=== PATIENT | female | born 1985 | race African-American/Black ===

== ENCOUNTER 2016-09-09 10:46 | Emergency (ER) | payer MEDICAID ==
[~2016-09-09] VITALS: Ht 162.6 cm; Wt 110.0 kg
[2016-09-09] MEDS ORDERED: SODIUM CHLORIDE 0.9% 1,000 ML IV ONE (11:15)
[2016-09-09] MEDS ORDERED: ONDANSETRON HCL 4MG/2ML VIAL IV ONE (11:15)
[2016-09-09] MEDS ORDERED: FAMOTIDINE 20MG/2ML VIAL IV ONE (11:15)
[2016-09-09 11:46] LABS: BASOPHILS % 0.8 % (0.0-2.0); EOSINOPHILS % 4.3 % (0.0-5.0); HEMATOCRIT. 41.3 % (36.0-48.0); HEMOGLOBIN. 13.5 g/dL (12.0-16.0); LYMPHOCYTES % 24.8 % (20.0-50.0); MEAN CORPUSCULAR HEMOGLOBIN 29.2 pg (28.0-32.0); MEAN CORPUSCULAR HGB CONC 32.7 g/dL (31.0-37.0); MEAN CORPUSCULAR VOLUME 89.1 fL (81.0-99.0); MEAN PLATELET VOLUME 8.7 fl (7.4-10.4); MONOCYTES % 7.5 % (2.0-8.0); NEUTROPHILS % 62.6 % (40.0-76.0); PLATELET 288 x1000/uL (130-400); RED BLOOD CELL COUNT 4.64 mill/uL (4.2-5.4); RED CELL DISTRIBUTION WIDTH 14.8 % (11.6-14.6); WHITE BLOOD COUNT 6.5 x1000/uL (4.5-11.0)
[2016-09-09 11:52] LABS: CHLORIDE 104 mEq/L (98-107); INDEX HEMOLYSI 1 (1-3); INDEX ICTERIC 1 (1-4); INDEX LIPEMIC 1 (1-3)
[2016-09-09 12:06] LABS: ALANINE AMINOTRANSFERASE 22 IU/L (13-61); ALBUMIN 4.5 g/dL (3.4-5.0); ANION GAP 13; B-HCG QUANTITATIVE < 1 mIU/mL (<3); CALCIUM 9.8 mg/dL (8.5-10.1); CARBON DIOXIDE 25 mEq/L (21-32); LIPASE 78 IU/L (73-393); UREA NITROGEN BLOOD 7 mg/dL (7-21); eGFR > 60 mL/min (>60)
[2016-09-09 13:00] VITALS: BP 125/80
[2016-09-09 13:27] LABS: CLARITY URINE CLOUDY (CLEAR); COLOR URINE DARK YELLOW (YELLOW); GLUCOSE URINE NEGATIVE (NEGATIVE); KETONES URINE 1+ (NEGATIVE); LEUKOCYTE ESTERASE URINE NEGATIVE (NEGATIVE); NITRITE URINE NEGATIVE (NEGATIVE); OCCULT BLOOD URINE NEGATIVE (NEGATIVE); PH URINE 5.5 (4.5-8.0); PROTEIN URINE 1+ (NEGATIVE); SPECIFIC GRAVITY URINE 1.026 (1.005-1.030)
[2016-09-09 13:41] LABS: BACTERIA URINE 2+; RBC URINE 0-2 /hpf (0-2); SQUAMOUS EPITHELIAL CELL URINE 3+ /lpf (RARE/1+); WBC URINE 0-2 /hpf (0-2)
== END 2016-09-09 16:19 | disposition home or self-care (01) ==
LOC: ER 10:55
DX: B34.9 Viral infection, unspecified (principal); R10.84 Generalized abdominal pain; G40.909 Epilepsy, unspecified, not intractable, without status epilepticus; I25.10 Atherosclerotic heart disease of native coronary artery without angina pectoris; R62.59 Other lack of expected normal physiological development in childhood; Z98.61 Coronary angioplasty status
CPT/HCPCS: 36415; 76830; 76856; 80053; 81001; 83690; 84702; 85025; 86850; 86870; 86900; 86901; 96361; 96374; 96375; 99285; J2405; J3490; J7030; Z7610

== ENCOUNTER 2016-09-10 02:54 | Emergency (ER) | payer MEDICAID ==
[~2016-09-10] VITALS: Ht 177.8 cm; Wt 100.0 kg
[2016-09-10 03:48] VITALS: BP 115/79
[2016-09-10] MEDS ORDERED: ACETAMINOPHEN 325MG TABLET ONE (05:31)
[2016-09-10] MEDS ORDERED: TETANUS, DIPHTHERIA, PERTUSSIS VAC/PF 0.5ML (>7YR OLD) IM ONE (06:00)
== END 2016-09-10 07:45 | disposition home or self-care (01) ==
LOC: ER 03:02
DX: R21 Rash and other nonspecific skin eruption (principal); F79 Unspecified intellectual disabilities; F41.9 Anxiety disorder, unspecified; F20.9 Schizophrenia, unspecified; G40.909 Epilepsy, unspecified, not intractable, without status epilepticus
CPT/HCPCS: 99283

== ENCOUNTER 2016-09-25 00:50 | Emergency (ER) | payer MEDICAID ==
[~2016-09-25] VITALS: Ht 167.6 cm; Wt 92.7 kg
[2016-09-25] MEDS ORDERED: IBUPROFEN 600MG TABLET PO ONE (03:45)
[2016-09-25] MEDS ORDERED: ACETAMINOPHEN 325MG TABLET PO ONE (03:45)
[2016-09-25 04:18] LABS: BASOPHILS % 0.8 % (0.0-2.0); EOSINOPHILS % 2.5 % (0.0-5.0); HCG SCREEN NEGATIVE; HEMATOCRIT. 33.6 % (36.0-48.0); HEMOGLOBIN. 11.2 g/dL (12.0-16.0); LYMPHOCYTES % 37.3 % (20.0-50.0); MEAN CORPUSCULAR HEMOGLOBIN 29.2 pg (28.0-32.0); MEAN CORPUSCULAR HGB CONC 33.4 g/dL (31.0-37.0); MEAN CORPUSCULAR VOLUME 87.3 fL (81.0-99.0); MEAN PLATELET VOLUME 8.8 fl (7.4-10.4); MONOCYTES % 8.5 % (2.0-8.0); NEUTROPHILS % 50.9 % (40.0-76.0); PLATELET 289 x1000/uL (130-400); RED BLOOD CELL COUNT 3.85 mill/uL (4.2-5.4); RED CELL DISTRIBUTION WIDTH 14.5 % (11.6-14.6); WHITE BLOOD COUNT 7.7 x1000/uL (4.5-11.0)
[2016-09-25 04:21] LABS: ACETAMINOPHEN < 2 ug/mL (10-30); ANION GAP 13; CARBON DIOXIDE 25 mEq/L (21-32); CHLORIDE 105 mEq/L (98-107); ETHANOL BLOOD < 10 mg/dL; INDEX HEMOLYSI 1 (1-3); INDEX ICTERIC 1 (1-4); INDEX LIPEMIC 1 (1-3); UREA NITROGEN BLOOD 9 mg/dL (7-21); eGFR > 60 mL/min (>60)
[2016-09-25 04:33] LABS: CLARITY URINE CLOUDY (CLEAR); COLOR URINE YELLOW (YELLOW); GLUCOSE URINE NEGATIVE (NEGATIVE); KETONES URINE TRACE (NEGATIVE); LEUKOCYTE ESTERASE URINE TRACE (NEGATIVE); NITRITE URINE NEGATIVE (NEGATIVE); OCCULT BLOOD URINE TRACE (NEGATIVE); PH URINE 5.5 (4.5-8.0); PROTEIN URINE NEGATIVE (NEGATIVE)
[2016-09-25 04:43] LABS: *AMPHETAMINES SCREEN URINE NEGATIVE (NEGATIVE); *BARBITURATES SCREEN URINE NEGATIVE (NEGATIVE); *BENZODIAZEPINES SCREEN URINE NEGATIVE (NEGATIVE); *COCAINE SCREEN URINE NEGATIVE (NEGATIVE); CANNABINOID URINE SCREEN NEGATIVE (NEGATIVE); ECSTASY MDMA SCREEN URINE NEGATIVE (NEGATIVE); METHADONE URINE SCREEN NEGATIVE (NEGATIVE); OPIATES URINE SCREEN NEGATIVE (NEGATIVE); PHENCYCLIDINE URINE SCREEN NEGATIVE (NEGATIVE)
[2016-09-25 06:42] LABS: BACTERIA URINE 3+; SQUAMOUS EPITHELIAL CELL URINE 2+ /lpf (RARE/1+)
[2016-09-25 06:44] LABS: MUCUS URINE 2+ /lpf (< = 2+)
[2016-09-25 11:26] VITALS: BP 141/91
== END 2016-09-25 11:27 | disposition home or self-care (01) ==
LOC: ER 01:02
DX: R42 Dizziness and giddiness (principal); R52 Pain, unspecified; F78 Other intellectual disabilities; F81.9 Developmental disorder of scholastic skills, unspecified
CPT/HCPCS: 36415; 80048; 80305; 80307; 80329; 81001; 84703; 85025; 99284; G0482

== ENCOUNTER 2016-11-19 14:19 | Emergency (ER) | payer MEDICAID ==
[~2016-11-19] VITALS: Ht 172.7 cm; Wt 75.0 kg
[2016-11-19 16:42] VITALS: BP 134/85
== END 2016-11-19 18:50 | disposition home or self-care (01) ==
LOC: ER 18:17
DX: T74.21XA Adult sexual abuse, confirmed, initial encounter (principal); Z91.018 Allergy to other foods; Y93.89 Activity, other specified; Y99.8 Other external cause status; Y92.89 Other specified places as the place of occurrence of the external cause
CPT/HCPCS: 81025; 99283

== ENCOUNTER 2016-12-02 18:00 | Emergency (ER) | payer MEDICAID ==
[~2016-12-02] VITALS: Ht 170.2 cm; Wt 90.0 kg
[2016-12-02 20:14] LABS: BG CARBOXYHEMOGLOBIN 0.6 % (0.5-1.5); BG DEOXYHEMOGLOBIN 2.1 % (0.0-5.0); BG FRACTION INSPIRED OXYGEN 21; BG METHEMOGLOBIN 0.4 % (0.0-1.5); BG OXYGEN SATURATION 97.9 % (92.0-98.5); BG OXYHEMOGLOBIN 96.9 % (94.0-97.0); BG PCO2 30.7 mmHg (35.0-45.0); BG PH 7.453 (7.350-7.450); BG PO2 106.2 mmHg (75.0-100.0); BG SAMPLE SITE LEFT BRACHIAL; BG TOTAL HEMOGLOBIN 12.9 g/dL (12.0-18.0); BG VENT MODE ROOM AIR
[2016-12-02 20:20] VITALS: BP 127/84
[2016-12-02] MEDS ORDERED: LORAZEPAM 1MG TABLET PO ONE (20:45)
[2016-12-02 21:00] LABS: HCG SCREEN NEGATIVE
[2016-12-02] MEDS ORDERED: ACETAMINOPHEN 325MG TABLET PO ONE (21:00)
== END 2016-12-02 21:44 | disposition home or self-care (01) ==
LOC: ER 18:18
DX: F45.8 Other somatoform disorders (principal); F25.0 Schizoaffective disorder, bipolar type; G40.909 Epilepsy, unspecified, not intractable, without status epilepticus; Z91.018 Allergy to other foods
CPT/HCPCS: 36600; 82375; 82805; 84703; 99283; Z7610

== ENCOUNTER 2016-12-15 14:22 | Emergency (ER) | payer MEDICAID, OTHER ==
[~2016-12-15] VITALS: Ht 167.6 cm; Wt 70.0 kg
[2016-12-15 16:06] LABS: BASOPHILS % 0.7 % (0.0-2.0); EOSINOPHILS % 3.6 % (0.0-5.0); HEMATOCRIT. 35.5 % (36.0-48.0); HEMOGLOBIN. 12.2 g/dL (12.0-16.0); LYMPHOCYTES % 29.1 % (20.0-50.0); MEAN CORPUSCULAR HEMOGLOBIN 30.5 pg (28.0-32.0); MEAN CORPUSCULAR VOLUME 89.1 fL (81.0-99.0); MEAN PLATELET VOLUME 9.4 fl (7.4-10.4); MONOCYTES % 11.6 % (2.0-8.0); PLATELET 236 x1000/uL (130-400); RED BLOOD CELL COUNT 3.98 mill/uL (4.2-5.4); RED CELL DISTRIBUTION WIDTH 14.2 % (11.6-14.6)
[2016-12-15 16:09] LABS: INR 1.1; PROTHROMBIN TIME 11.5 sec
[2016-12-15 16:11] LABS: CHLORIDE 103 mEq/L (98-107)
[2016-12-15 16:18] LABS: CARBON DIOXIDE 26 mEq/L (21-32)
[2016-12-15 16:19] VITALS: BP 110/69
== END 2016-12-15 17:30 | disposition left against medical advice (07) ==
LOC: ER 14:31
DX: R10.9 Unspecified abdominal pain (principal); M19.90 Unspecified osteoarthritis, unspecified site; Z91.018 Allergy to other foods
CPT/HCPCS: 36415; 80053; 80307; 80329; 83690; 85025; 85610; 93005; 99285

== ENCOUNTER 2017-03-10 23:11 | Emergency (ER) | payer MEDICAID, OTHER ==
[~2017-03-10] VITALS: Ht 175.3 cm; Wt 100.0 kg
[2017-03-10 23:16] VITALS: BP 132/89
== END 2017-03-11 03:30 | disposition left against medical advice (07) ==
LOC: ER 23:11
DX: Z53.21 Procedure and treatment not carried out due to patient leaving prior to being seen by health care provider (principal)

== ENCOUNTER 2023-05-24 17:51 | Emergency (ER) | payer OTHER ==
[~2023-05-24] VITALS: Ht 170.2 cm; Wt 84.0 kg
[2023-05-24 17:54] VITALS: BP 125/89; PULSE 100; RESP 18; TEMP 98.6; O2SAT 100
== END 2023-05-25 03:04 | disposition home or self-care (01) ==
LOC: ER 17:51
DX: R10.84 Generalized abdominal pain (principal); F31.9 Bipolar disorder, unspecified; F20.9 Schizophrenia, unspecified
CPT/HCPCS: 99283